=== PATIENT | male | born 1980 | race Caucasian/White ===

== ENCOUNTER 2018-09-13 19:02 | Emergency (ER) | payer MEDICAID ==
[~2018-09-13] VITALS: Ht 177.8 cm; Wt 81.6 kg
--- NOTE | 2018-09-13 19:46 | NUR ---
PT SEEN BY FOR [facility].
--- NOTE | 2018-09-13 19:48 | NUR ---
Patient discharged to home in stable conditon. Written and verbal after care instructions given. Patient verbalizes understanding of instructions. PT D/C HOME W/ PRESCRIPTION. ALL BELONGINGS W/ PT. PT SELF-AMBULATED WITHOUT DIFFICULTY.
[2018-09-13 19:50] VITALS: BP 123/75
== END 2018-09-13 20:07 | disposition home or self-care (01) ==
LOC: ER 19:05
DX: J32.9 Chronic sinusitis, unspecified (principal); F17.210 Nicotine dependence, cigarettes, uncomplicated
CPT/HCPCS: A4663

== ENCOUNTER 2018-09-21 01:24 | Emergency (ER) | payer MEDICAID, OTHER ==
[~2018-09-21] VITALS: Ht 172.7 cm; Wt 83.5 kg
[2018-09-21] MEDS ORDERED: TDAP DIPH,PERTUSS,TET VAC/PF 0.5 ML DISP.SYRIN IM ONE ×2 (01:43→01:45)
[2018-09-21] MEDS ORDERED: NEOMY/BACITRA/POLYMYXIN B OINT UD PACKET TP ONE ×2 (01:43→01:45)
[2018-09-21 02:07] VITALS: BP 148/88
--- NOTE | 2018-09-21 02:07 | NUR ---
Patient discharged to home in stable conditon. Written and verbal after care instructions given. Patient verbalizes understanding of instructions.
== END 2018-09-21 02:08 | disposition home or self-care (01) ==
LOC: ER 01:27
DX: S90.812A Abrasion, left foot, initial encounter (principal); F17.210 Nicotine dependence, cigarettes, uncomplicated; V00.831A Fall from motorized mobility scooter, initial encounter; Y93.89 Activity, other specified; Y92.89 Other specified places as the place of occurrence of the external cause; Y99.8 Other external cause status
CPT/HCPCS: 73630; 90715; A4663